=== PATIENT | female | born 1975 ===

== ENCOUNTER 2018-01-23 14:09 | Outpatient (CLI) | payer OTHER ==
[~2018-01-23 14:09] MED LIST: DIOVAN40 MG PO
== END 2018-01-23 15:02 | disposition home or self-care (01) ==
LOC: MAMO-SONO 14:09
DX: N60.11 Diffuse cystic mastopathy of right breast (principal); N60.12 Diffuse cystic mastopathy of left breast; Z12.31 Encounter for screening mammogram for malignant neoplasm of breast

== ENCOUNTER → 2019-09-12 | Emergency (ER) | payer OTHER ==
[~2019-09-12] VITALS: Ht 162.6 cm; Wt 99.8 kg
[~2019-09-12] MED LIST changes: +ANALPRAM HC 2.530 GM RECTAL; +DICLOFENAC SODI75 MG PO
== END | disposition home or self-care (01) ==
LOC: ER 17:35
DX: N20.0 Calculus of kidney (principal); R19.7 Diarrhea, unspecified; K64.4 Residual hemorrhoidal skin tags